=== PATIENT | male | born 1985 ===

== ENCOUNTER 2018-10-04 18:35 | Emergency (ER) | payer OTHER ==
[~2018-10-04] VITALS: Ht 167.6 cm; Wt 77.1 kg
[2018-10-05] MEDS ORDERED: PHENERGAN25 MG PO (04:16)
[2018-10-05] MEDS ORDERED: ZANTAC300 MG PO (04:16)
== END 2018-10-05 04:14 | disposition home or self-care (01) ==
LOC: ER 18:35
DX: T62.8X1A Toxic effect of other specified noxious substances eaten as food, accidental (unintentional), initial encounter (principal); R11.2 Nausea with vomiting, unspecified

== ENCOUNTER 2018-10-06 06:45 | Emergency (ER) | payer OTHER ==
[~2018-10-06] VITALS: Ht 167.6 cm; Wt 77.1 kg
[~2018-10-06 06:45] MED LIST: PHENERGAN25 MG PO; ZANTAC300 MG PO
== END 2018-10-06 11:06 | disposition home or self-care (01) ==
LOC: ER 06:45
DX: K29.70 Gastritis, unspecified, without bleeding (principal)